=== PATIENT | male | born 1995 | race Caucasian/White ===

== ENCOUNTER → 2017-06-02 | Outpatient (CLI) | payer OTHER ==
[2017-06-02 14:57] LABS: CREATINE KINASE MB 1.9 NG/ML (<6.6)
== END ==
LOC: LABNPT 14:29
PROVIDERS: ATTEND Nurse Practitioner Family
DX: R07.9 Chest pain, unspecified (principal)
CPT/HCPCS: 82553; 84484

== ENCOUNTER 2019-02-13 15:03 | Emergency (ER) | payer OTHER ==
[~2019-02-13] VITALS: Ht 182 cm; Wt 84.0 kg
[2019-02-13] MEDS ORDERED: ORPHENADRINE 60 MG/2 ML (NORFLEX) AMP IM ONE (15:30)
[2019-02-13] MEDS ORDERED: KETOROLAC 30 MG/ML VIAL IM ONE (15:30)
[2019-02-13] MEDS ORDERED: PRD20T PO (15:58)
[2019-02-13] MEDS ORDERED: HYDR-4226 PO (15:58)
--- NOTE | 2019-02-13 15:58 | ED Lower Extremity ---
General Chief Complaint: Lower Extremity Stated Complaint: LEFT LEG PAIN Nursing Triage Note: COMPLAINS OF LEFT UPPER LEG GROIN PAIN AFTER STANDING ALL DAY AT WORK. Nursing Sepsis Screen: No Definite Risk Source: patient Exam Limitations: no limitations History of Present Illness Date Seen by Provider: Feb 13, 2019 Time Seen by Provider: 15:55 Initial Comments To ER by EMS from home with left anterior thigh pain sudden in onset while at work. 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 Pain is worsened with flexion of the left leg at the hip. No history of this. No trauma. Onset: just prior to arrival Severity: moderate Pain/Injury Location: left leg Method of Injury: unknown Modifying Factors: Worse With Movement Allergies and Home Medications Allergies Coded Allergies: No Known Drug Allergies (Unverified , 02/13/19) Patient Home Medication List Home Medication List Reviewed: Yes Review of Systems Constitutional: see HPI EENTM: see HPI Respiratory: see HPI Cardiovascular: no symptoms reported Genitourinary: no symptoms reported Musculoskeletal: no symptoms reported Skin: no symptoms reported Psychiatric/Neurological: No Symptoms Reported Past [id number] Hx Patient Social History Recent Foreign Travel: No Contact w/Someone Who Travel: No Recent Infectious Disease Expo: No Recent Hopitalizations: No Seasonal Allergies Seasonal Allergies: No Past Medical History Surgeries: No Orthopedic Respiratory: No Cardiac: No Neurological: No Genitourinary: No Gastrointestinal: No Musculoskeletal: No Endocrine: No Cancer: No Psychosocial: No Integumentary: No Physical Exam Vital Signs Vital Signs - First Documented 02/13/19 15:03 Pulse 86 Resp 16 B/P (MAP) 126/90 (102) Pulse Ox 99 O2 Delivery Room Air Capillary Refill : Less Than 3 Seconds Height, Weight, BMI Height: '" Weight: lbs. oz. kg; 25.00 BMI Method: General Appearance: WD/WN, no apparent distress HEENT: PERRL/EOMI, normal ENT inspection Neck: non-tender, full range of motion Respiratory: no respiratory distress, no accessory muscle use Gastrointestinal: normal bowel sounds, non tender, soft Hips: right hip non-tender; bilateral hip normal inspection; right hip normal range of motion; left hip other (left anterior proximal thigh tender to palpation worse with resisted flexion) Legs: bilateral leg non-tender Knees: bilateral knee non-tender, bilateral knee normal inspection, bilateral knee normal range of motion Ankles: bilateral ankle non-tender, bilateral ankle normal inspection, bilateral ankle normal range of motion Feet: bilateral foot non-tender, bilateral foot normal inspection, bilateral foot normal range of motion Neurologic/Psychiatric: alert, normal mood/affect, oriented x 3 Skin: normal color, warm/dry Strong dorsalis pedis pulse. Progress/Results/Core Measures Results/Orders Vital Signs/I&O 02/13/19 15:03 Pulse 86 Resp 16 B/P (MAP) 126/90 (102) Pulse Ox 99 O2 Delivery Room Air Blood Pressure Mean: 102 Departure Communication (Admissions) No bulging in the left inguinal canal, no pain on palpation of the hip joint itself. Impression Primary Impression: Hip flexor tendinitis Qualified Codes: M76.892 - Other specified enthesopathies of left lower limb, excluding foot Disposition: HOME, SELF-CARE Condition: Stable Departure-Patient Inst. Decision time for Depature: 15:57 Referrals: NO,LOCAL PHYSICIAN (PCP/Family) Primary Care Physician Patient Instructions: NO INSTRUCTIONS GIVEN Scripts Hydrocodone/Acetaminophen (Center 5-325 Tablet) 1 Each Tablet 1 TAB PO Q6H for Pain MDD 10 TABS for 7 Days, #10 TAB Prov: BEVERLEY MIX APRN 02/13/19 Prednisone (Prednisone) 20 Mg Tab 40 MG PO DAILY, #6 TAB 0 Refills Prov: BEVERLEY MIX APRN 02/13/19 BEVERLEY MIX APRN Feb 13, 2019 15:58
[2019-02-13 16:26] VITALS: BP 121/84
== END 2019-02-13 16:26 | disposition home or self-care (01) ==
LOC: EDUNIT# 15:03 → ER 15:15
DX: M76.892 Other specified enthesopathies of left lower limb, excluding foot (principal); X50.0XXA Overexertion from strenuous movement or load, initial encounter; Y92.59 Other trade areas as the place of occurrence of the external cause
CPT/HCPCS: 99284